=== PATIENT | female | born 1995 | race Two or more races ===

== ENCOUNTER → 2022-12-28 | Outpatient (REF) | payer OTHER | LOC: M SFHCWAGY 13:05 | PROVIDERS: ATTEND Specialist | DX: Z34.83 Encounter for supervision of other normal pregnancy, third trimester (principal) | CPT/HCPCS: 87081; G0463 ==

== ENCOUNTER 2023-01-13 12:00 | Outpatient (CLI) | payer OTHER ==
[~2023-01-13] VITALS: Ht 152.4 cm; Wt 88.1 kg
[2023-01-13] MEDS ORDERED: PRENTAB9 PO (12:19)
[2023-01-13 12:25] VITALS: BP 130/80
[2023-01-13] MEDS ORDERED: HOME MED LIST COMPLETE! XX SCH (12:35)
== END 2023-01-13 13:47 | disposition home or self-care (01) ==
LOC: M LDO 12:00
PROVIDERS: ATTEND Advanced Practice Midwife
DX: O26.893 Other specified pregnancy related conditions, third trimester (principal); N89.8 Other specified noninflammatory disorders of vagina; Z3A.39 39 weeks gestation of pregnancy
CPT/HCPCS: 59025; G0463

== ENCOUNTER 2023-01-14 19:48 | Inpatient (IN) | payer OTHER ==
[~2023-01-14] VITALS: Ht 152.4 cm; Wt 89.2 kg
[2023-01-14] VITALS (7 sets, daily range): BP systolic 113–139; BP diastolic 57–87
[~2023-01-14 19:48] MED LIST: PRENTAB9 PO
[2023-01-14] MEDS ORDERED: HOME MED LIST COMPLETE! XX SCH (20:00)
[2023-01-14] MEDS ORDERED: LIDOCAINE 1% MDV 20ML VIAL INFIL PRN (20:30)
[2023-01-14] MEDS ORDERED: OXYTOCIN DRIP 30 UNITS in IV 1 EA IV PRN (20:30)
[2023-01-14 20:55] LABS: HEMATOCRIT 36.6 % (36.0-47.0); HEMOGLOBIN 12.2 g/dl (12.0-15.5); MEAN CORPUSCULAR HEMOGLOBIN 28.3 pg (27.0-33.0); MEAN CORPUSCULAR HGB CONC 33.3 g/dl (32.0-36.5); MEAN CORPUSCULAR VOLUME 84.9 fl (80.0-96.0); PLATELET COUNT, AUTOMATED 221 10^3/uL (150-450); RED BLOOD COUNT 4.31 10^6/uL (4.00-5.40); WHITE BLOOD COUNT 6.5 10^3/uL (4.0-10.0)
[2023-01-14] MEDS ORDERED: RHOGAM 300MCG (1500IU) INJ IM SCH (22:05)
[2023-01-14] MEDS ORDERED: ACETAMINOPHEN 500 MG TAB PO PRN (22:05)
[2023-01-14] MEDS ORDERED: IBUPROFEN 600MG TAB PO PRN (22:05)
[2023-01-14] MEDS ORDERED: ACETAMINOPHEN TAB 650MG DOSE (2X325MG) PO PRN (22:05)
[2023-01-14] MEDS ORDERED: METHYLERGONOVINE MALEATE 0.2 MG TAB PO PRN (22:05)
[2023-01-14] MEDS ORDERED: DOCUSATE SODIUM 100MG CAPSULE PO PRN (22:05)
[2023-01-14] MEDS ORDERED: DIBUCAINE 1% OINTMENT 30GM TOP PRN (22:05)
[2023-01-14] MEDS: IBUPROFEN 800 MG TAB PO PRN (22:48)
[2023-01-15] VITALS: BP 110/63
[2023-01-15 06:00] VITALS: BP 111/67
[2023-01-15] MEDS: PRENATAL VITAMINS CHEWABLE TABLET PO SCH (07:22)
[2023-01-15] MEDS: IBUPROFEN 800 MG TAB PO PRN (07:23)
[2023-01-15 18:00] VITALS: BP 115/59
[2023-01-16 06:00] VITALS: BP 116/76
[2023-01-16] MEDS ORDERED: MEASLES,MUMPS,RUBELLA VACCINE INJ (MMR-II) SC.IMMUN ONE (09:00)
[2023-01-16] MEDS ORDERED: COLA100C5 PO (10:18)
[2023-01-16] MEDS ORDERED: IBUP-1022 PO (10:18)
[2023-01-16] MEDS ORDERED: ACET-683 PO (10:18)
[2023-01-16] MEDS: PRENATAL VITAMINS CHEWABLE TABLET PO SCH (12:00)
== END 2023-01-16 14:37 | disposition home or self-care (01) | DRG 807 ==
LOC: M LDO 19:48 → M LDI 20:24 → M OBS 23:38
PROVIDERS: ADMIT Specialist; ATTEND Specialist
PROC: 10E0XZZ Delivery of Products of Conception, External Approach (ICD-10-PCS; principal; 2023-01-14)
DX: O69.82X0 Labor and delivery complicated by other cord entanglement, without compression, not applicable or unspecified (principal); Z37.0 Single live birth; Z3A.39 39 weeks gestation of pregnancy

== ENCOUNTER → 2023-04-14 | Outpatient (REF) | payer OTHER ==
[~2023-04-14] MED LIST changes: +ACET-683 PO; +COLA100C5 PO; +IBUP-1022 PO
== END ==
LOC: M LAB REF 12:24
PROVIDERS: ATTEND Nurse Practitioner Family
DX: R30.0 Dysuria (principal)